=== PATIENT | male | born 1995 | race American Indian/Alaskan Native ===

== ENCOUNTER 2020-07-19 11:34 | Emergency (ER) | payer MEDICAID ==
[2020-07-19 11:55] VITALS: BP 125/72
--- NOTE | 2020-07-19 12:14 | Emergency Department Report ---
Chief Complaint: Earache Stated Complaint: LEFT EAR PAIN/CHEST PAIN/BACK PAIN Time Seen by Provider: 07/19/20 11:57 - HPI History of Present Illness: 25-year-old male patient with history of hearing impairment presents to the emergency department with complaints of nontraumatic left ear pain starting 2 days ago. Patient reports increased difficulty hearing compared with his baseline. He wears hearing aids; both devices appear to be fully intact. No recent water exposure. Denies fever, chills, sore throat, neck stiffness, purulent drainage. Denies all other complaints at this time. - ROS Review of Systems: GENERAL: Negative for fever. ENT: Positive for ear pain. CARDIOVASCULAR: Positive for chest pain. PULMONARY: Negative for shortness of breath. GASTROINTESTINAL: Negative for abdominal pain. MUSCULOSKELETAL: Positive for back pain. NEUROLOGICAL: Negative for headache. INTEGUMENTARY: Negative for rash. - Exam Vital Signs: Vital Signs 07/19/20 11:50 Temperature 98.3 F Pulse Rate 70 Respiratory 17 Rate Blood Pressure 125/72 [Right] O2 Sat by Pulse 98 Oximetry Physical Exam: General: Awake, appropriately interactive, no acute distress. ENT: Left tympanic membrane appears normal. There is a small round white mass posterior/superior to the tympanic membrane. Neck: Supple. Full range of motion intact. Cardiovascular: Normal peripheral perfusion. Pulmonary: No respiratory distress. Patient is speaking normally without use of accessory muscles. Skin: No apparent rashes or lesions. Neurological: No facial asymmetry. Speech is clear. Follows commands. Patient is alert and oriented. Musculoskeletal: Moves all four extremities spontaneously with normal range of motion. Psych: Cooperative. Appropriate mood and affect. MSE screening note: Focused history and physical exam performed. Due to findings the following was ordered: ED Medical Decision Making - Medical Decision Making Patient presents emergency department with complaints of left ear pain. He is hearing impaired at baseline. Physical exam findings suggestive of cholesteatoma. No evidence of concomitant infection. No clinical indication for further diagnostic work-up on an emergent basis at this time. Patient will be discharged home with ENT referral. Prior to discharge, patient also reported back pain for 2 years been chest pain for 6 years, no different today. Vital signs are stable. No respiratory distress. Neurological exam is nonfocal. He does not have a primary care provider. Patient will be referred to primary care provider for outpatient follow-up of ongoing medical issues. ED Disposition for MSE Clinical Impression: Left ear pain Disposition: Z- MED SCREENING EXAM-LEFT Is pt being admited?: No Does the pt Need Aspirin: No Condition: Stable Instructions: Earache, Adult Additional Instructions: Follow-up with Dr. Jacobson, ENT specialist, this week regarding your left ear. Call today to schedule an appointment. You must establish care with a local primary care provider for definitive management of ongoing health issues. See referral information below. Call today to schedule an appointment. Return to the emergency department immediately for new or worsening symptoms. Referrals: BRUCE JACOBSON MD [Staff Physician] - 3-5 Days GEOVANY HERCULES MD [Staff Physician] - 3-5 Days [facility] [Outside] - 3-5 Days [facility] [Outside] - 3-5 Days [facility] [Outside] - 3-5 Days Time of Disposition: 12:12
== END 2020-07-19 13:02 | disposition left against medical advice (07) ==
LOC: ED 11:34
DX: H92.02 Otalgia, left ear (principal); Z53.21 Procedure and treatment not carried out due to patient leaving prior to being seen by health care provider